=== PATIENT | male | born 1965 | race Caucasian/White ===

== ENCOUNTER → 2018-10-20 10:48 | Outpatient (CLI) | payer OTHER, MEDICAID, SELFPAY ==
[2018-10-20 11:01] LABS: Semen Sperm Prescence Post-Vas Present (ABSENT)
== END ==
PROVIDERS: Visit Provider Urology
DX: Z30.09 Encounter for other general counseling and advice on contraception (principal)
CPT/HCPCS: 89321

== ENCOUNTER → 2018-12-02 14:43 | Outpatient (CLI) | payer OTHER, MEDICAID, SELFPAY ==
[2018-12-02 15:29] LABS: Semen Sperm Prescence Post-Vas Absent (ABSENT)
== END ==
PROVIDERS: Visit Provider Urology
DX: Z30.09 Encounter for other general counseling and advice on contraception (principal)
CPT/HCPCS: 89321